=== PATIENT | male | born 1990 | race Caucasian/White ===

== ENCOUNTER 2017-04-03 12:54 | Emergency (ER) | payer SELFPAY ==
[~2017-04-03 12:54] MED LIST: BEN50 PO
== END 2017-04-03 15:12 | disposition left against medical advice (07) ==
LOC: E/R 12:54
DX: Z53.21 Procedure and treatment not carried out due to patient leaving prior to being seen by health care provider (principal)

== ENCOUNTER 2017-06-02 13:43 | Emergency (ER) | END 2017-06-02 17:04 | disposition left against medical advice (07) ==

== ENCOUNTER 2017-06-03 00:54 | Emergency (ER) | END 2017-06-03 02:20 | disposition left against medical advice (07) ==

== ENCOUNTER 2017-06-03 20:57 | Emergency (ER) | END 2017-06-04 01:39 | disposition home or self-care (01) ==

== ENCOUNTER 2017-06-16 11:52 | Emergency (ER) | END 2017-06-16 16:12 | disposition home or self-care (01) ==

== ENCOUNTER 2018-01-27 03:01 | Observation (INO) | END 2018-01-28 13:50 | disposition left against medical advice (07) ==

== ENCOUNTER 2018-01-29 02:52 | Emergency (ER) | END 2018-01-29 03:25 | disposition left against medical advice (07) ==

== ENCOUNTER 2018-01-29 08:20 | Emergency (ER) | END 2018-01-29 08:55 | disposition home or self-care (01) ==